=== PATIENT | female | born 1950 | race Caucasian/White ===

== ENCOUNTER 2023-10-26 10:50 | Outpatient (CLI) | payer MEDICARE, BC, SELFPAY ==
--- NOTE | 2023-10-26 10:30 | DI.RAD_ITS ---
Exam(s) XR PELVIS AP EXAM: XR PELVIS AP CLINICAL HISTORY: BILAT HIP OA. TECHNIQUE: 2D digital imaging was performed. Single AP view. COMPARISON: RF XR HIPS BILAT MIN 2V EA from 09/04/2023 FINDINGS: BONES: No acute fracture is present. No bony destructive lesion is seen. JOINTS: No dislocation present. Severe bilateral hip joint space narrowing and periarticular spurring . Subchondral cysts on both sides of the joint bilaterally. The SI joints and pubic symphysis are u nremarkable. SOFT TISSUE: Normal. IMPRESSION: Severe degenerative changes of both hips. DATA REPOSITORY: RADIATION DOSE DELIVERED:
== END 2023-10-26 10:51 | disposition home or self-care (01) ==
LOC: DIORS 10:50
PROVIDERS: PCP Internal Medicine; Referring Provider Internal Medicine; Visit Provider Physician Assistant
DX: M16.0 Bilateral primary osteoarthritis of hip (principal)
CPT/HCPCS: 99203; 72170

== ENCOUNTER 2023-11-16 04:07 | Outpatient (CLI) | payer MEDICARE, BC, SELFPAY ==
[2023-11-16 12:02] LABS: HCT 40.6 % (36.0-46.0); HGB 13.3 g/dL (11.2-15.7); MCH 28.1 pg (27.0-33.0); MCHC 32.8 % (32.0-36.0); MCV 86 fL (80-95); MPV 8.8 fL (8.0-11.0); Platelet Count 273 10^3/uL (130-400); RBC 4.73 10^6/uL (3.93-5.22); RDW 13.4 % (11.7-14.6); RDW-SD 42.2 fL; WBC 7.29 10^3/uL (4.4-10.8)
[2023-11-16 12:24] LABS: Anion Gap 7.6 mmol/L (3-11); BUN 19 mg/dL (7-18); CO2 28.4 mmol/L (21.0-32.0); CREATININE 0.9 mg/dL (0.55-1.02); Calcium 9.4 mg/dL (8.5-10.1); Chloride 103 mmol/L (98-107); Estimated GFR 68.35 (mL/min/1.73m2); Glucose 99 mg/dL (74-106); Potassium 4.5 mmol/L (3.5-5.1); Sodium 139 mmol/L (136-145)
== END 2023-11-16 04:08 | disposition home or self-care (01) ==
LOC: LBO 04:10
PROVIDERS: PCP Internal Medicine; Visit Provider Student in an Organized Health Care Education/Training Program
DX: M16.0 Bilateral primary osteoarthritis of hip (principal); Z01.818 Encounter for other preprocedural examination
CPT/HCPCS: 36415; 80048; 85027; 86850; 86900; 86901

== ENCOUNTER 2023-11-28 05:51 | Day surgery (SDC) | payer MEDICARE, BC, SELFPAY ==
[2023-11-28] VITALS (24 sets, daily range): BP systolic 89–159; BP diastolic 32–63; PULSE 50–73; RESP 11–18; TEMP 36–36.6; O2SAT 93–100; BMI 21.6
[2023-11-28] MEDS: Acetaminophen 500 MG TAB 1000 MG PO (06:30)
[2023-11-28] MEDS: Celecoxib 200 MG CAP 400 MG PO (06:31)
[2023-11-28] MEDS: Lactated Ringers 1,000 ML 80 ML IV (06:50)
--- NOTE | 2023-11-28 07:14 | W.ANESPRE ---
General Info Date of Service Date Performed: 11/28/23 Height: 5 ft 2 in Weight: 53.7 kg Body Mass Index (BMI): 21.6 Surgical Procedure: Operation Date: 11/28/23 08:00 Proposed Procedure Side Surgeon p Hip Total Hip Anterior Bilateral, Corail Low Bilateral Ellis Roa MD Actual Procedure Side Surgeon p Hip Total Hip Anterior Bilateral, Corail Low Bilateral Ellis Roa MD Pre-Op Diagnosis Post-Op Diagnosis Bilateral primary osteoarthritis of hip Meds Allergies and Home Medications Allergies Allergy/AdvReac Type Severity Reaction Status Date / Time Penicillins Allergy Unknown Unknown Verified 11/24/23 12:45 Sulfa (Sulfonamide Allergy edema Verified 11/24/23 12:45 Antibiotics) Home Medication ?Medication ?Instructions ?Recorded amlodipine 2.5 mg tablet 2.5 mg PO DAILY 10/04/23 hydroxychloroquine 200 mg tablet 200 mg PO DAILY 10/04/23 multivitamin 1 tab PO DAILY 10/04/23 betamethasone dipropionate 0.05 % 1 applic topical .COMPLEX 10/26/23 topical ointment acetaminophen 500 mg tablet 1,000 mg (2 x 500 mg) PO Q8H PRN 11/28/23 pain #90 tabs aspirin 81 mg tablet,delayed 81 mg PO BID 30 days #60 tabs 11/28/23 release celecoxib 200 mg capsule (Celebrex) 200 mg PO BID PRN #60 caps 11/28/23 dexamethasone 4 mg tablet 4 mg PO DAILY #2 tabs 11/28/23 docusate sodium 100 mg capsule 100 mg PO BID #30 caps 11/28/23 (Colace) pantoprazole 40 mg tablet,delayed 40 mg PO DAILY #14 tabs 11/28/23 release tramadol 50 mg tablet 50 mg PO Q4H PRN severe 11/28/23 postoperative pain #18 tabs Current Visit Medications: Current Medications Generic Name Dose Route Start Last Admin Trade Name Freq PRN Reason Stop Dose Admin Acetaminophen 1,000 mg 11/28/23 06:00 11/28/23 06:30 Acetaminophen 500 Mg Tab PO 11/28/23 23:59 1,000 mg PREOP MARKOS Administration Celecoxib 400 mg 11/28/23 06:00 11/28/23 06:31 Celecoxib 200 Mg Cap PO 11/28/23 23:59 400 mg PREOP MARKOS Administration Ringer's Solution 1,000 mls @ 80 mls/hr 11/28/23 06:00 11/28/23 06:50 IV 11/28/23 23:59 80 mls/hr INFUSION MARKOS Administration Cefazolin Sodium/Dextrose 2 gm in 50 mls @ 100 mls/hr 11/28/23 06:00 Ancef Duplex IVPB 11/28/23 23:59 PREOP MARKOS Tranexamic Acid/Sodium Chloride 1,000 mg in 100 mls @ 600 mls/hr 11/28/23 06:00 IVPB 11/28/23 23:59 PREOP MARKOS Tranexamic Acid/Sodium Chloride 1,000 mg in 100 mls @ 600 mls/hr 11/28/23 06:00 IVPB 11/28/23 23:59 DIRECTED MARKOS IV Miscellaneous Supplies 1 each 11/28/23 06:00 Iv Access IV 11/28/23 23:59 DIRECTED MARKOS Sodium Chloride 0 ml 11/28/23 06:00 Normal Saline Flush 10 Ml Syr IV 11/28/23 23:59 PRN PRN Sodium Chloride 0 ml 11/28/23 06:00 Normal Saline 10 Ml Vial IJ 11/28/23 23:59 DIRECTED PRN Sterile Water 0 ml 11/28/23 06:00 Water,Injection,Sterile 10 Ml Vial IJ 11/28/23 23:59 DIRECTED PRN PFSH Active Problems Active Problems: Problem Status Onset Code Bilateral primary osteoarthritis of hip Acute M16.0 PVD (peripheral vascular disease) Chronic I73.9 Lupus erythematosus Acute L93.0 Hypertensive disorder Chronic I10 Medical History Medical History Systemic sclerosis History of CREST syndrome Allergic rhinitis Surgical History Surgical History Hx of colonoscopy Hx of hysterectomy Tobacco Smoking/Tobacco Use Status: Never Alcohol Alcohol Intake: current Alcohol intake frequency: a few times a month Alcohol type: wine Substance Use Substance use: Never Substance use type: does not use Details: alcohol: t-4: one drink Vital Signs and Lab Results Vital Signs Most Recent Vital Signs in EMR: Most Recent Vital Signs Temp Pulse Resp BP Pulse Ox 36.3 C L 69 18 159/56 H 99 11/28/23 06:23 11/28/23 06:23 11/28/23 06:23 11/28/23 06:23 11/28/23 06:23 Lab Results Blood Type / Crossmatch: Antibody Screen NEGATIVE 11/16/23 Complete Blood Count: White Blood Count 7.29 10^3/uL (4.4-10.8) 11/16/23 11:55 Red Blood Count 4.73 10^6/uL (3.93-5.22) 11/16/23 11:55 Hemoglobin 13.3 g/dL (11.2-15.7) 11/16/23 11:55 Hematocrit 40.6 % (36.0-46.0) 11/16/23 11:55 Platelet Count 273 10^3/uL (130-400) 11/16/23 11:55 Complete Metabolic Panel: Sodium 139 mmol/L (136-145) 11/16/23 11:55 Potassium 4.5 mmol/L (3.5-5.1) 11/16/23 11:55 Chloride 103 mmol/L (98-107) 11/16/23 11:55 Carbon Dioxide 28.4 mmol/L (21.0-32.0) 11/16/23 11:55 BUN 19 mg/dL (7-18) H 11/16/23 11:55 Creatinine 0.9 mg/dL (0.55-1.02) 11/16/23 11:55 Est GFR (CKD-EPI 2020) 68.35 (mL/min/1.73m2) 11/16/23 11:55 Calcium 9.4 mg/dL (8.5-10.1) 11/16/23 11:55 Glucose 99 mg/dL (74-106) 11/16/23 11:55 Liver Function Panel: No Data to Display Coagulation Panel: No Data to Display Cardiac Panel: No Data to Display Arterial Blood Gas: No Data to Display Venous Blood Gas: No Data to Display Pancreas Panel: No Data to Display Thyroid Panel: No Data to Display Infectious Disease: No Data to Display Blood Cultures: No Data to Display Toxicology Panel: No Data to Display Anesthesia Assessment and Plan Anesthesia History Personal History: No History of Anesthesia Complications Family History: No Family History of Anesthesia Complications Exercise Tolerance Exercise Tolerance: Metabolic Equivalents>4 Pertinent Negatives Pertinent Negatives: No Symptoms of GERD, No Major Cardiovascular Symptoms or Complaints, No Major Pulmonary Symptoms or Complaints and No History of CVA/TIA Cardiac & Pulmonary Exam Cardiac Exam: Normal S1/S2 Heart Sounds Pulmonary Exam: Clear Bilateral Breath Sounds Implantable Cardiac Device Does patient have a Pacemaker or an ICD?: No Airway Exam Known Difficult Airway: No Mallampati Class: 2 Mouth Opening: Normal (> 3cm) Thyromental Distance: Greater than 3 cm Neck Range of Motion: Full ROM Neck Circumference: Normal Teeth Condition: Normal Dentition ASA Classification ASA Score: ASA 2 Emergency Case?: No NPO Status NPO Status: NPO Clears >2 hours, Solids >8 hours Anesthesia Plan Resuscitation Status: Full Code Anesthesia Technique: Spinal Anesthesia Airway Planned: Natural Airway Monitors Used: Standard Monitors
--- NOTE | 2023-11-28 07:19 | DSE_ITS ---
Date of service: 11/28/23 Time of Service: 07:22 Discharge Plan Disposition Patient Disposition: Home Condition: Good Discharge Details Reason For Visit: Bilateral hip DJD Attending Provider: Ellis Roa Primary Care Provider: Juli Pastrana Home Meds and New Rx's Prescriptions: New celecoxib [Celebrex] 200 mg capsule 200 mg PO BID PRNQty: 60 0RF Rx Instructions: Take one tablet twice daily for pain and inflammation aspirin 81 mg tablet,delayed release (DR/EC) 81 mg PO BID 30 Days Qty: 60 0RF acetaminophen 500 mg tablet 1,000 mg PO Q8H PRN Qty: 90 0RF Rx Instructions: Take two tablets up to every 8 hours as needed for pain pantoprazole 40 mg tablet,delayed release (DR/EC) 40 mg PO DAILY Qty: 14 0RF dexamethasone 4 mg tablet 4 mg PO DAILY Qty: 2 0RF Rx Instructions: Take one tablet once daily for two days docusate sodium [Colace] 100 mg capsule 100 mg PO BID Qty: 30 0RF tramadol 50 mg tablet 50 mg PO Q4H PRN (Reason: severe postoperative pain) Qty: 18 0RF Rx Instructions: Take one tablet up to every 4 hours as needed for severe pain Continued betamethasone dipropionate 0.05 % ointment 1 applic topical .COMPLEX Patient Comments: nose and R thumb pad Rx Instructions: 1 applic topically TWICE PER WEEK; amlodipine 2.5 mg tablet 2.5 mg PO DAILY hydroxychloroquine 200 mg tablet 200 mg PO DAILY multivitamin Tablet 1 tab PO DAILY Discontinued acetaminophen [8 Hour Pain Reliever] 650 mg tablet extended release 650 mg PO ONCE Discharge Instructions Additional Instructions: Total Hip Discharge Instructions Activity: The most important activity is to walk. You should try to take short walks a few times a day. You have no restrictions on movement or positioning, but do not try to force what you do. You will find some stiffness and weakness with hip flexion (lifting your knee). Do not try to strengthen this too early, continue to practice walking and stairs and this will come. - Outpatient physical therapy can be helpful to help return you to a normal gait and improve your flexibility and strength. This can start around 2 weeks. For some patients, it?s not necessary. Usually this is determined at the time of discharge or at the first post-operative visit. - You should wear the ERUM hose on both legs for 2 weeks. Dressing: Keep the surgical dressing in place for at least one week. After the first week it may be removed and replace with light gauze and tape or nothing. It may get wet after 3 days but avoid soaking the dressing. If it gets wet, just lightly pat dry. It is important to always keep some gauze between skin folds, especially when you are sitting. Spend some time with the wound exposed when you are lying flat as the incision does wrinkle onto itself. Medications: - You should take Tylenol and an anti-inflammatory Celebrex as your primary pain control medications. If the Celebrex is too expensive or not covered, please call the office for another alternative (Advil/Ibuprofen or Naproxen/Aleve). - You have been prescribed a stronger pain medication Tramadol for breakthrough pain, take as needed as prescribed. - You have also been prescribed a stomach acid reduction agent Pantoprozole to help reduce stomach acid and reflux. - You have also been prescribed Decadron to help with post-operative nausea and pain. You will take this for two days starting tomorrow. - You will be taking Aspirin 81mg twice a day for DVT prevention unless instructed otherwise. - If you have constipation you should take Colace (which has been prescribed) or Miralax (which is available [id number]). It takes most people 3-4 days to have a bowel movement. Follow-up: 2 weeks If you have any acute concerns or questions, please do not hesitate to contact the office at [phone]. You may contact Dr. Roa with any questions after hours through the hospital at [phone] or on his cell phone at [phone]. Stand Alone Forms: Anesthesia Discharge Inst., [facility] Pires ([facility]) Referrals: Ellis Roa MD [ [facility] STAFF PHYSICIAN] - 12/11/23 10:45 am Equipment/Supplies: Walker Activity:: Elevate Remove Dressings/Wound Care:: Do Not Remove Shower/Bathe:: Cover Diet:: As Tolerated Discharge Orders Discharge Orders: Discharge Order (Routine); Ordered 11/28/23 Ordered By: Ce Morrison Discharge Data Discharge Date/Time-TO BE ENTERED AT DEPARTURE: 11/28/23 17:04 DS: Summary Time Spent with Patient providing and/or coordinating discharge services: Less than 30 minutes Status at Discharge Functional status at discharge: uses cane/walker Overall status at discharge: patient is progressing back to baseline Mental Status: mental status grossly normal Speech and Movement: speech and movement normal Mood: congruent mood Affect: normal affect Quality:SDOH Health Related Social Needs: No Data to Display Exam Psych Mental Status: mental status grossly normal Speech and Movement: speech and movement normal Mood: congruent mood Affect: normal affect DS: Data Vitals/I&O Vitals and I&O: Vital Signs Temperature 97.3 F L 11/28/23 06:23 Pulse 69 11/28/23 06:23 Pulse Rhythm Regular 11/28/23 06:23 Respiratory Rate 18 11/28/23 06:23 Respiratory Depth Normal 11/28/23 06:23 Blood Pressure 159/56 H 11/28/23 06:23 Pulse Oximetry 99 11/28/23 06:23 Oxygen Delivery Method Room Air 11/28/23 06:23 Oxygen Flow Rate 0 11/28/23 06:23 Pain Level 0 11/28/23 06:23 Intake & Output 11/27/23 11/27/23 11/28/23 11:59 23:59 11:59 Weight 118 lb 6.212 oz PFSH All Active Problems (Updated 11/29/23 @ 13:20 by Nilsa Mas RN) History of bilateral total hip arthroplasty (Acute) PVD (peripheral vascular disease) (Chronic) Lupus erythematosus (Acute) Hypertensive disorder (Chronic) Medical History (Updated 11/29/23 @ 13:20 by Nilsa Mas RN) Systemic sclerosis History of CREST syndrome Allergic rhinitis Surgical History (Updated 11/29/23 @ 13:20 by Nilsa Mas RN) Hx of colonoscopy Hx of hysterectomy Social History Smoking/Tobacco Use Status: Never Smoking risk assessment performed?: Yes Alcohol Intake: current Alcohol Intake frequency: a few times a month Alcohol type: wine Drug use: Never Substance use type: does not use Details: alcohol: t-4: one drink Housing: house Do you feel safe at home: Yes Do you feel safe in your relationship?: Yes Additional Social history: [facility] Time Spent with Patient Time Spent with Patient: <45 minutes Time was spent: preparing to see the patient(eg.review tests), obtaining and/or reviewing separately otained hiistory, indepentently interpreting results and counseling the patient
[2023-11-28] MEDS: ceFAZolin 2 GM/50 ML BAG IVPB (07:34)
[2023-11-28] MEDS: TRANEXAMIC ACID/SOD. CHL. 1,000 MG/100 ML BAG 600 MG IVPB ×2 (07:48→08:59)
--- NOTE | 2023-11-28 08:50 | DI.RAD_ITS ---
Exam(s) XR HIP LT IN OR EXAM: XR HIP LT IN OR CLINICAL HISTORY: Bilateral primary osteoarthritis of hip: TECHNIQUE: 2D and realtime digital imaging was performed. CONTRAST MATERIAL: Refer to procedure report. COMPARISON: CR XR PELVIS AP from 10/26/2023 FINDINGS: Fluoroscopy was provided for Dr. Roa during the performance of a left total hip replacement. P lease refer to the procedure report for complete details. Ka,r=2.0 mGy IMPRESSION: RADIATION DOSE DELIVERED: 0.0 0.0 0
--- NOTE | 2023-11-28 09:57 | DI.RAD_ITS ---
Exam(s) XR HIP RT IN OR EXAM: XR HIP RT IN OR CLINICAL HISTORY: Bilateral primary osteoarthritis of hip: TECHNIQUE: 2D and realtime digital imaging was performed. CONTRAST MATERIAL: Refer to procedure report. COMPARISON: CR XR PELVIS AP from 10/26/2023 FINDINGS: Fluoroscopy was provided for Dr. Roa during the performance of a right total hip arthroplasty. Please refer to the procedure report for complete details. Ka,r=2.66 mGy IMPRESSION: RADIATION DOSE DELIVERED: 0.0 0.0 0
--- NOTE | 2023-11-28 10:05 | ROE_ITS ---
Date of service: 11/28/23 Time of Service: 07:45 Operative Note Operative Note DATE OF PROCEDURE: 11/13/19 PRE-OP DIAGNOSIS: Bilateral Hip Osteoarthritis POST-OP DIAGNOSIS: same PROCEDURE: Bilateral Anterior Total Hip Arthroplasty with Intraoperative Navigation SURGEON: Ellis Roa PHOTOGRAPH RETOUCHER: Ce Morrison ANESTHESIA TYPE: Spinal Refer to Anesthesia Record ESTIMATED BLOOD LOSS: 200 PATHOLOGY: none sent COMPLICATIONS: None Patient was transported to: PACU Patient's condition: stable Implants: RIGHT: 1. Depuy Stamping Ground Acetabular Component, 50mm 2. Depuy Acetabular Liner, [id number] 3. Depuy Corail Standard Collared Femoral Stem, Size 12 4. Depuy Altrx Ceramic Femoral Head, Size 32+1mm LEFT: 1. Depuy Stamping Ground Acetabular Component, 50mm 2. Depuy Acetabular Liner, [id number] 3. Depuy Corail Short Neck Femoral Stem, Size 12 4. Depuy Altrx Ceramic Femoral Head, Size 32+5mm Indications: I have seen Carmen in clinic for symptoms of hip arthritis, confirmed with radiographic findings. She has exhausted nonoperative methods and was having significant limitations in daily function and desired better function and less pain. I discussed the technical details of a hip replacement. I explained the risks of the procedure to include, but not limited to, bleeding, infection, pain, stiffness, fracture, damage to nerves and vessels, damage to muscles and tendons, loosening, instability, leg length inequality, need for repeat procedure, blood clot and cardiopulmonary demise. Despite these risks, Carmen elected to proceed. Findings: There was significant signs of arthritis throughout both hips with loss of cartilage and osteophytes throughout. Procedure Description: Carmen was greeted in the preoperative holding area where the correct side was identified and marked. The consent was reviewed with the patient and signed. The history and physical was updated. All questions were answered. She was taken back to the operating room. A spinal anesthestic was then administered. The patient was placed into the supine position on the HANA table. Both feet were wrapped with Webrill cotton wrap along with Coban. LEFT Side The feet were placed in specialized boots for the HANA table, well seated within the boot and secured. SCDs were applied. The patient was then slid down onto a peroneal post. A preoperative AP hip was obtained to serve as a reference for determining leg lengths. Prophylactic antibiotics in the form of Cefazolin were administered. 1g of Tranxemic Acid was given intravenously within 30 minutes of incision. The left leg was then prepped with Chloraprep and draped in a standard fashion. A second prep with Chloraprep was performed prior to placement of a shower-curtain type drape with Iodine impregnated skin protection. A timeout to confirm correct identity, side and site, procedure, allergies, anesthesia, and medical concerns was performed. An obliquely oriented incision was made starting lateral to the ASIS and running distal over the Tensor Fascia Megha (TFL) muscle belly toward the fibular head, approximately 10cm. The skin and soft tissue was dissected sharply, through Regina?s fascia, and to the fascia of the TFL. With the fascia and superior border of the IT band identified, the fascia was incised with a new knife just above any perforators from the IT band. The TFL muscle belly was bluntly dissected away from the fascia and moved laterally. The fat between TFL and rectus was identified to ensure the dissection was not within the TFL. Blunt dissection created space between abductors and the capsule and retractor was placed over the lateral femoral neck. The fibers of the rectus femoris tendon were identified and these were freed from the anterior capsule. A second cobra retractor was placed around the medial femoral neck. The TFL was further retracted laterally to show the deep fascia. Careful dissection through this layer identified three main crossing vessels of the lateral femoral circumflex. These were cauterized in multiple locations and then cut without any noticeable bleeding. The TFL was further released bluntly from the deep fascia to expose anterior hip capsule and fat A soft tissue retractor was then placed beneath the TFL and against sartorius and medial soft tissues to protect and retract the soft tissues. A T-capsulotomy was then performed starting at the superior lateral acetabulum and moving distally to the intertrochanteric ridge. These capsular flaps were tagged with a No. 1 Ethibond and elevated from within. The capsular flaps were released to the shoulder of the lateral neck and to the lesser trochanter to give excellent visualization of the proximal femur. A neck osteotomy was performed using an oscillating saw based on preoperative templates. This cut started in the shoulder and of the lateral neck and exited medially. The saw was at all times directed medially to avoid injury to the greater trochanter. Gentle traction was applied to the leg and the osteotomy opened. The femoral head was removed with a corkscrew, making sure to protect the TFL on its exit. This was measured on the back table to determing the starting reamer size. Portions of the rectus obscuring visualization were minimally elevated off the superior acetabulum. An anterior retractor was placed over the anterior wall between capsule and labrum and attached to the Gripper retraction system. A posterior retractor was placed similarly. This provided excellent visualization. The contents of the cotyloid fossa were removed with electrocautery and the labrum was removed with a knife. There was a notable floor osteophyte. There was significant chondromalacia of the superior acetabulum. Acetabular reaming began with a 44mm reamer. This first reaming was directed anterior to posterior and medial to get down to the true floor. This was inspected and reamed until the true floor was reached. The anterior retractor was then released and entry and exit was provided by traction on the capsular flaps. I then reamed sequentially up to a 50mm reamer where good fit was obtai abraham. The larger reamers were oriented based on anatomical reference of the anterior and lateral reddy to ensure proper abduction and anteversion. Positioning and size was confirmed with the fluoroscopy. A 50mm Depuy Stamping Ground acetabular component was selected. The acetabulum was reamed around the periphery with the selected acetabular size to prevent a rim fit. The deep tissues were irrigated. The acetabular component was then impacted in a position of about 40-45 degrees of abduction and 15-20 degrees of anteversion, using the patient?s anatomy as the ultimate landmark. Fluoroscopy was used to confirm this. There was excellent engineering psychologist of the acetabular component and the inserting handle was removed. The acetabular liner, Depuy [id number] polyethylene liner, was inserted and lined up with the tines of the acetabular component. There was no soft tissue interposition. The liner was then impacted into position and confirmed to be well-seated. A portion of the octavio-articular cocktail was then injected around the acetabulum into the capsule and periosteum. This cocktail consisted of 123mg of Ropivacaine, 0.25mg of Epinephrine, 0.04mg of Clonidine, and 15mg of Ketorolac, diluted to 50cc. Traction was released from the femur. The leg was rotated to 120 degrees. Any remaining medial capsule was released until the lesser trochanter was easily palpable. A Dye retractor was placed medially. The lateral capsule was further released into the shoulder to allow access to the greater trochanter. A Dye retractor was placed over the greater trochanter which allowed the trochanter to flip in front of the capsule for excellent exposure. The leg was brought down into maximal extension and 20 degrees of adduction while ensuring there was no impingement on the acetabulum. Any remnant capsule within the trochanter was released. Piriformis and obturator externis were identified and protected. There was excellent access to the proximal femur. The lateral neck remnant was removed with a rongeur. A blunt canal probe was used to identify the canal and trajectory for later broaching. A box osteotome initiated the broach course. A small curved rasp and a curved curette were used to work laterally. Broaching then began with a size 8 Corail broach. This was inserted manually around the trochanter and into the canal before mallet blows. The broach was seated to a few millimeters below the cut level based on the neck cut and the preoperative template. Sequential broaching was continued with the Sproutse pneumatic broaching device until a tight fit was obtained with good rotational control of the femur. A trial short neck was inserted along with a +1mm trial head. The leg was brought out of extension and adduction and then reduced with traction and internal rotation. The leg was stable anteriorly in a position of 30 degrees of extension and 90 degrees of external rotation. Fluoroscopy was used to ensure there was no fracture and the stem was seated well. Leg lengths were checked with an AP pelvis and pelvic reference points. Etogas navigation system was used to confirm appropriate positioning and leg length and offset. Once content with the desired offset and leg lengths, the leg was brought back into extension, external rotation and adduction. The periosteum and surrounding tissue was injected with remaining portion of the octavio-articular cocktail. The proximal femur was irrigated as well as the deep tissues. The Depuy Corail short neck stem, size 12, was then manually inserted into the proximal femur making sure to control rotation. It was then malleted into position with light blows, giving breaks to allow bone expansion and decrease risk of fracture. The selected Depuy Altrx Ceramic Head, size 32+5mm, was then placed onto the clean and dry trunnion and secured with impaction onto the tapered fit. The leg was brought back out of extension and adduction and reduced with traction and internal rotation. Stability was confirmed with no shuck at 90 degrees of external rotation and 30 degrees of extension. No impingement through range of motion arc. Final x-ray images were obtained with fluoroscopy to confirm adequate positioning and no intraoperative fracture. The deep tissues were thoroughly irrigated with Irrisept chlorhexadine solution. The capsule was then reapproximated with the previously placed Ethibond sutures. The TFL fascia was finally closed with a No. 2 Stratafix, barbed suture. Deep tissues were then reapproximated with 0 Vicryl and a running 2-0 Vicryl. The skin was closed with a running 4-0 Monocryl in a subcuticular fashion. This was reinforced with skin glue. A Mepilex silver dressing was applied. The second dose of TXA 1g was administered intravenously. RIGHT Side Keeping the back table sterile, the drapes were removed, light handles changed, and fluoroscopy switched rooms sides. Once again, a AP hip was obtained to serve as a reference for determining leg lengths. The right leg was then prepped with Chloraprep and draped in a standard fashion. A second prep with Chloraprep was performed prior to placement of a shower-curtain type drape with Iodine impregnated skin protection. A timeout was once again performed to ensure that there were no issues to proceed. An obliquely oriented incision was made starting lateral to the ASIS and running distal over the Tensor Fascia Megha (TFL) muscle belly toward the fibular head, approximately 10cm. The skin and soft tissue was dissected sharply, through Regina?s fascia, and to the fascia of the TFL. With the fascia and superior border of the IT band identified, the fascia was incised with a new knife just above any perforators from the IT band. The TFL muscle belly was bluntly dissected away from the fascia and moved laterally. The fat between TFL and rectus was identified to ensure the dissection was not within the TFL. Blunt dissection created space between abductors and the capsule and retractor was placed over the lateral femoral neck. The fibers of the rectus femoris tendon were identified and these were freed from the anterior capsule. A second cobra retractor was placed around the medial femoral neck. The TFL was further retracted laterally to show the deep fascia. Careful dissection through this layer identified three main crossing vessels of the lateral femoral circumflex. These were cauterized in multiple locations and then cut without any noticeable bleeding. The TFL was further released bluntly from the deep fascia to expose anterior hip capsule and fat. A soft tissue retractor was then placed beneath the TFL and against sartorius and medial soft tissues to protect and retract the soft tissues. A T-capsulotomy was then performed starting at the superior lateral acetabulum and moving distally to the intertrochanteric ridge. These capsular flaps were tagged with a No. 1 Ethibond and elevated from within. The capsular flaps were released to the shoulder of the lateral neck and to the lesser trochanter to give excellent visualization of the proximal femur. A neck osteotomy was performed using an oscillating saw based on preoperative templates. This cut started in the shoulder and of the lateral neck and exited medially. The saw was at all times directed medially to avoid injury to the greater trochanter. Gentle traction was applied to the leg and the osteotomy opened. The femoral head was removed with a corkscrew, making sure to protect the TFL on its exit. This was measured on the back table to determing the starting reamer size. Portions of the rectus obscuring visualization were minimally elevated off the superior acetabulum. An anterior retractor was placed over the anterior wall between capsule and labrum and attached to the Gripper retraction system. A posterior retractor was placed similarly. This provided excellent visualization. The contents of the cotyloid fossa were removed with electrocautery and the labrum was removed with a knife. There was a notable floor osteophyte. There was significant chondromalacia of the superior acetabulum. Acetabular reaming began with a 44mm reamer. This first reaming was directed anterior to posterior and medial to get down to the true floor. This was inspected and reamed until the true floor was reached. The anterior retractor was then released and entry and exit was provided by traction on the capsular flaps. I then reamed sequentially up to a 50mm reamer where good fit was obtained. The larger reamers were oriented based on anatomical reference of the anterior and lateral reddy to ensure proper abduction and anteversion. Positioning and size was confirmed with the fluoroscopy. A 50mm Depuy Stamping Ground acetabular component was selected. The acetabulum was reamed around the periphery with the selected acetabular size to prevent a rim fit. The deep tissues were irrigated. The acetabular component was then impacted in a position of about 40-45 degrees of abduction and 15-20 degrees of anteversion, using the patient?s anatomy as the ultimate landmark. Fluoroscopy was used to confirm this. There was excellent engineering psychologist of the acetabular component and the inserting handle was removed. The acetabular liner, Depuy [id number] polyethylene liner, was inserted and lined up with the tines of the acetabular component. There was no soft tissue interposition. The liner was then impacted into position and confirmed to be well-seated. A portion of the octavio-articular cocktail was then injected around the acetabulum into the capsule and periosteum. This cocktail consisted of 123mg of Ropivacaine, 0.25mg of Epinephrine, 0.04mg of Clonidine, and 15mg of Ketorolac, diluted to 50cc. Traction was released from the femur. The leg was rotated to 120 degrees. Any remaining medial capsule was released until the lesser trochanter was easily palpable. A Dye retractor was placed medially. The lateral capsule was further released into the shoulder to allow access to the greater trochanter. A Dye retractor was placed over the greater trochanter which allowed the trochanter to flip in front of the capsule for excellent exposure. The leg was brought down into maximal extension and 20 degrees of adduction while ensuring there was no impingement on the acetabulum. Any remnant capsule within the trochanter was released. Piriformis and obturator externis were identified and protected. There was excellent access to the proximal femur. The lateral neck remnant was removed with a rongeur. A blunt canal probe was used to identify the canal and trajectory for later broaching. A box osteotome initiated the broach course. A small curved rasp and a curved curette were used to work laterally. Broaching then began with a size 8 Corail broach. This was inserted manually around the trochanter and into the canal before mallet blows. The broach was seated to a few millimeters below the cut level based on the neck cut and the preoperative template. Sequential broaching was continued with the Bonsai AIcise pneumatic broaching device until a tight fit was obtained with good rotational control of the femur. A trial short neck was inserted along with a +5 trial head. The leg was brought out of extension and adduction and then reduced with traction and internal rotation. The leg was stable anteriorly in a position of 30 degrees of extension and 90 degrees of external rotation. Fluoroscopy was used to ensure there was no fracture and the stem was seated well. Leg lengths were checked with an AP pelvis and pelvic reference points. Etogas navigation system was used to confirm appropriate positioning and leg length and offset. This slightly undercorrected leg length and offset. Once content with the desired offset and leg lengths, the leg was brought back into extension, external rotation and adduction. The periosteum and surrounding tissue was injected with remaining portion of the octavio-articular cocktail. The proximal femur was irrigated as well as the deep tissues. The Depuy Corail standard collared stem, size 12, was then manually inserted into the proximal femur making sure to control rotation. It was then malleted into position with light blows, giving breaks to allow bone expansion and decrease risk of fracture. The selected Depuy Altrx Ceramic Head, size 32+1mm, was then placed onto the clean and dry trunnion and secured with impaction onto the tapered fit. The leg was brought back out of extension and adduction and reduced with traction and internal rotation. Stability was confirmed with no shuck at 90 degrees of external rotation and 30 degrees of extension. No impingement through range of motion arc. Final x-ray images were obtained with fluoroscopy to confirm adequate positioning and no intraoperative fracture. The deep tissues were thoroughly irrigated with Irrisept chlorhexadine solution. The capsule was then reapproximated with the previously placed Ethibond sutures. The TFL fascia was finally closed with a No. 2 Stratafix, barbed suture. Deep tissues were then reapproximated with 0 Vicryl and a running 2-0 Vicryl. The skin was closed with a running 4-0 Monocryl in a subcuticular fashion. This was reinforced with skin glue. A Mepilex silver dressing was applied. At the end of the case, all counts were correct. Carmen was transferred to the hospital bed without difficulty and suffering no apparent complication. Carmen has a good prognosis. Physical therapy will start today and without restrictions, weight-bearing as tolerated. Aspirin 81mg BID will be used for DVT prophylaxis.
[2023-11-28] MEDS: ePHEDrine 25 MG/5 ML Syringe IVP (10:30)
--- NOTE | 2023-11-28 13:44 | W.ANESPOSTOP ---
Postoperative Evaluation Date, Time and Location Date Performed: 11/28/23 Time Performed: 13:32 Patient Location: Day Surgery Unit Vital Signs Most Recent Imported Vital Signs: Most Recent Vital Signs Temp Pulse Resp BP Pulse Ox 36.3 C L 71 18 148/63 H 99 11/28/23 13:15 11/28/23 13:15 11/28/23 13:15 11/28/23 13:15 11/28/23 13:15 Pain Score Most Recent Pain Score: Most Recent Pain Score Pain Level 0 11/28/23 13:15 Assessment Mental Status: Awake (Alert & Oriented to Patient Baseline) Airway and Respiratory Function: Patent airway with normal (patient baseline) respiratory exam Cardiovascular Function: Hemodynamically Stable Hydration Status: Adequately Hydrated Nausea & Vomiting: No Nausea or Vomiting Pain: Pt. Denies Any Pain Peripheral Nerve Block: Patient did not receive a nerve block
[2023-11-28] MEDS: ceFAZolin 1 GM/50 ML BAG IVPB (15:51)
--- NOTE | 2023-11-28 16:47 | PT.INIE ---
PT Notes Visit Reasons: Bilateral hip DJD Physical Therapy Day Surgery Initial Evaluation Date: November 28, 2023 Referring Doctor: Dr. Roa PT Orders: PT CONSULT: Safe discharge to home Precautions: Weightbearing as tolerated Patient Profile/Admitting Diagnosis: Mrs. Taylor is a 73-year-old female admitted for same-day surgery bilateral total hip arthroplasty by Dr. Roa on November 28, 2023 . PMHX: OA bilateral hips PVD Lupus erythematosus HTN Social History/Home Situation: Lives with 4 steps to enter two-story home with 1 rail to second floor where her primary bed and bath are located. She is independent ambulating without a device; active golfer and hiker. Independent with ADLs cooking shopping driving. She reports her first-floor bathroom is being renovated for a walk-in shower with elevated toilet seat height. Equipment Owned/DME: Rolling walker, walking sticks Subjective: I am ready to get going Objective: Patient presents semireclined on stretcher eager to walk. General Observation: Motivated to participate Mental Status: Alert and oriented x 4 Pain: Denied with pain meds in place ROM: Right Lower Extremity: Hip flexion 95 degrees ,abduction 20; knee and ankle within normal limits Left Lower Extremity: Hip flexion 95 degrees ,abduction 20; knee and ankle within normal limits Strength: Right Lower Extremity: >/= to 3 /5 Left Lower Extremity: >/= to 3 /5 Sensation: Intact Bed Mobility/Transfers: Independent Supine to sit independent Sit to stand standby assist with cues for hand placement Stand to sit standby assist with cues for hand placement Bed to chair standby assist with rolling walker Gait: Ambulate 150 feet with rolling walker standby assist Stairs: 5 steps with 1 rail on the left ascending standby assist reciprocal pattern; descending rail on right standby assist with step to pattern Balance: Static Sitting: Normal Dynamic Sitting: Good Static Standing: Good Dynamic Standing: Good with upper extremity support Special Tests: [] Mobility Limitations Standardized Measure [facility]-PAC 6 clicks Basic Mobility Inpatient Short Form: Raw Score: 23 CMS Score: 11.20% Informed Consent/Education: Patient instructed in purpose of PT consult. Packet containing JAGJIT exercise protocol has been given to patient. present as well. Education and training on initial set of exercises that can be done at home have been completed with patient. Assessment: Patient presents with clinical signs and symptoms consistent with current/admitting diagnoses that have resulted to mobility limitations, gait instability, generalized weakness, and impairment of motor control as demonstrated by the following impairment level findings: 1. Decreased strength to bilateral lower extremity major muscle groups 2. Impaired standing balance 3. Limitation of joint range of motion in left knee Impairments are contributing to the following functional limitations: 1. Inability to safely ambulate without assistive device 2. Increase completion time for mobility ADL performance 3. Increased fall risk Patient is assessed as a [] complexity based on the following: History: 73-year-old female with impairment level findings, functional limitations, and past medical history as indicated above Examination: Demonstrable impairment in strength, balance, and mobility level with underlying impairments and functional limitations as documented above Presentation: See above Decision Making: Good Goals: N/A. Plan of Care/Treatment Plan: N/A. DISCHARGE RECOMMENDATIONS: Home with home exercise program and follow-up with surgeon for further need of skilled PT TREATMENT CODE/TIME: 76387 20 mins; [id number] 15 mins [id number] Thank you for the opportunity to participate in the care of this patient. Please sign an return this page within 30 days if you agree with the above POC. Thank you! Physician Signature Date [facility]
== END 2023-11-28 17:04 | disposition home or self-care (01) ==
PROVIDERS: PCP Internal Medicine; Visit Provider Student in an Organized Health Care Education/Training Program
PROC: 0SR90JZ Replacement of Right Hip Joint with Synthetic Substitute, Open Approach (ICD-10-PCS; CPT 27130; principal; 2023-11-28 07:30)
DX: M16.0 Bilateral primary osteoarthritis of hip (principal); I73.9 Peripheral vascular disease, unspecified; L93.0 Discoid lupus erythematosus; I10 Essential (primary) hypertension
CPT/HCPCS: 20985; 27130; 97162; 97530; 73501; C1776; J0665; J0690; J1100; J2001; J2250; J2371; J2405; J2704

== ENCOUNTER 2023-12-11 14:00 | Outpatient (CLI) | payer MEDICARE, BC, SELFPAY ==
--- NOTE | 2023-12-11 10:30 | DI.RAD_ITS ---
Exam(s) XR HIP PELVIS ADULT BL EXAM: XR HIP PELVIS ADULT BL CLINICAL HISTORY: 1ST POST OP S/P BILAT JAGJIT. TECHNIQUE: 2D digital imaging was performed. COMPARISON: RF XR HIPS BILAT MIN 2V EA from 09/04/2023 FINDINGS: 3 views There is been interval placement of bilateral hip arthroplasties. Both arthroplasties appears satisfactory with normal position alignment and no evidence fractures nor loosening. No evidence of osteomyelitis. IMPRESSION: Stable satisfactory appearance of both recently placed hip prostheses. DATA REPOSITORY: RADIATION DOSE DELIVERED:
== END 2023-12-11 14:01 | disposition home or self-care (01) ==
LOC: DIORS 14:00
PROVIDERS: PCP Internal Medicine; Referring Provider Internal Medicine; Visit Provider Student in an Organized Health Care Education/Training Program
DX: Z96.643 Presence of artificial hip joint, bilateral (principal); Z47.1 Aftercare following joint replacement surgery
CPT/HCPCS: 73521

== ENCOUNTER → 2024-01-15 09:58 | Outpatient (BNVA) | payer MEDICARE, BC, SELFPAY | PROVIDERS: PCP Internal Medicine; Referring Provider Internal Medicine; Visit Provider Student in an Organized Health Care Education/Training Program | DX: Z47.1 Aftercare following joint replacement surgery (principal); Z96.643 Presence of artificial hip joint, bilateral | CPT/HCPCS: 99024 ==

== ENCOUNTER 2024-11-28 10:39 | Outpatient (CLI) | payer MEDICARE, BC, SELFPAY ==
--- NOTE | 2024-11-28 08:15 | DI.RAD_ITS ---
Exam(s) XR HIP LT AP LAT ONLY XR HIP RT AP LAT ONLY EXAM: XR HIP RT AP LAT ONLY CLINICAL HISTORY: ANNUAL F/U BILAT THAs. TECHNIQUE: 2D digital imaging was performed. Two views both hips COMPARISON: CR XR HIP PELVIS ADULT BL from 12/11/2023 CR XR HIP LT AP LAT ONLY from 11/28/2024 FINDINGS: BONES: No acute fracture is present. No bony destructive lesion is seen. JOINTS: No dislocation present. Stable alignment of bilateral hip prostheses. SOFT TISSUE: Normal. IMPRESSION: Stable appearance of bilateral hip prostheses. DATA REPOSITORY: RADIATION DOSE DELIVERED:
== END 2024-11-28 10:40 | disposition home or self-care (01) ==
LOC: DIORS 10:39
PROVIDERS: PCP Internal Medicine; Visit Provider Student in an Organized Health Care Education/Training Program
DX: Z47.1 Aftercare following joint replacement surgery (principal); Z96.643 Presence of artificial hip joint, bilateral
CPT/HCPCS: 99212; 73502